=== PATIENT | female | born 1990 | race Caucasian/White ===

== ENCOUNTER 2017-06-18 03:53 | Emergency (ER) | payer SELFPAY ==
[2017-06-18 04:46] LABS: Comments Flag Yes; Hematocrit 30 % (35-47); Hemoglobin 10.7 g/dl (12.0-16.0); Mean Corpuscular HGB Conc 36 g/dl (31-36); Mean Corpuscular Hemoglobin 31 pg (27-31); Mean Corpuscular Volume 85 fL (80-97); Mean Platelet Volume 8 um3 (7.4-10.4); Red Cell Distribution Width 18 % (10.5-15)
[2017-06-18 04:47] LABS: Add Diff/Slide Review? Slide Review Added
[2017-06-18 04:58] LABS: ALT 10 U/L (7-52); AST 26 U/L (13-39); Acetaminophen < 15 mcg/mL; Alcohol 51 mg/dL (<10); Alkaline Phosphatase 59 U/L (34-104); Anion Gap 7 mmol/L (2-11); BUN/Creatinine Ratio 28.3 (8-20); Blood Urea Nitrogen 13 mg/dL (6-24); CO2 Carbon Dioxide 26 mmol/L (22-32); Calcium 8.7 mg/dL (8.6-10.3); Chloride 110 mmol/L (101-111); EGFR African American 214.6 (>60); EGFR Non-African American 166.9 (>60); Globulin 2.4 g/dL (2-4); Glucose 93 mg/dL (70-100); Potassium 3.2 mmol/L (3.5-5.0); Salicylate < 2.50 mg/dL (<30); Sodium 143 mmol/L (133-145); Total Protein 6.4 g/dL (6.4-8.9)
[2017-06-18 05:10] LABS: Polychromasia 1+; Schistocytes 2+
[2017-06-18 05:11] LABS: Add Path Review? YES; Spherocytes 1+
[2017-06-18 05:12] LABS: TSH (Thyroid Stimulating Horm) 0.41 mcIU/mL (0.34-5.60)
[2017-06-18] MEDS ORDERED: Potassium Chlor TAB* 20 MEQ TAB.ER PO ONE (05:36)
--- NOTE | 2017-06-18 06:48 | ED ---
Silviano Sepulveda Tiffany, scribed for Nixon Go on 06/18/17 at 0419 . Substance Abuse/Use - HPI Summary HPI Summary: This patient is a 26 year old F BIBA on 941 to [facility] with a chief complaint of possible substance overdose s/p taking 4 tabs of 30 mg Mirtazapine three hours ago. Symptoms aggravated by nothing. Symptoms alleviated by nothing. The patient reports that her boyfriend stated that he would call the police and tell the police that she wanted to kill herself if she did not share her sleeping pills with him. Patient denies SI and HI at the time of evaluation. - History Of Current Complaint Chief Complaint: EDOverdose Stated Complaint: 941, POSS OD Time Seen by Provider: 06/18/17 03:57 Hx Obtained From: Patient Ingestion History: Type/Name Of Drug - Mirtazapine, Amount Ingested - 4 tabs of 30 mg, Approximate Time Of Ingestion - Three hours ago Aggravating Factor(s): Nothing Alleviating Factor(s): Nothing Associated Signs And Symptoms: Negative - SI and HI at the time of evaluation PMH/Surg Hx/FS Hx/Imm Hx Previously Healthy: Yes Cardiovascular History: Denies: Hx Hypertension History: Denies: Hx Renal Disease Opthamlomology History: Denies: Hx Legally Blind EENT History: Denies: Hx Deafness - Family History Known Family History: Positive: Other - Pt denies knowledge of relevant family history - Social History Alcohol Use: Occasionally Hx Substance Use: Yes Substance Use Type: Reports: Marijuana Review of Systems Negative: Fever Positive: Other - NEGATIVE: SI and HI at the time of evaluation All Other Systems Reviewed And Are Negative: Yes Physical Exam - Summary Physical Exam Summary: Appearance: Well appearing, no pain distress Skin: warm, dry, reflects adequate perfusion Head/face: normal Eyes: EOMI, RIYA ENT: normal Neck: supple, non-tender Respiratory: CTA, breath sounds present Cardiovascular: RRR, pulses symmetrical Abdomen: non-tender, soft Bowel: present Musculoskeletal: normal, strength/ROM intact Neuro: normal, sensory motor intact, A&Ox3 Psych: Depressed affect Triage Information Reviewed: Yes Vital Signs Reviewed: Yes Diagnostics - Laboratory Result Diagrams: 06/18/17 04:32 06/18/17 04:32 Lab Statement: Any lab studies that have been ordered have been reviewed, and results considered in the medical decision making process. - EKG 04:17 Cardiac Rate: NL EKG Rhythm: Sinus Rhythm - 93 BPM EKG Interpretation: No acute changes Course/Dx - Course Course Of Treatment: This patient is a 26 year old F BIBA on 941 to [facility] with a chief complaint of possible substance overdose s/p taking 4 tabs of 30 mg Mirtazapine three hours ago. An EKG reveals sinus rhythm (93 BPM) and no acute changes. Bloodwork/UA obtained. Patient will be signed out to Dr. Cardoso at shift change, awaiting medical clearance. - Diagnoses Provider Diagnoses: Depression, Suicidal ideation, Drug overdose Discharge - Discharge Plan Condition: Fair Disposition: OTHER Discharge Disposition Comment: Patient will be signed out at shift change, awaiting medical clearance The documentation as recorded by the Silviano cota Tiffany accurately reflects the service I personally performed and the decisions made by me, Nixon Go.
--- NOTE | 2017-06-18 12:02 | CONSULT ---
Consult Consult: Ms. Euceda presented on a previous shift after an OD. She was medically cleared and seen by the [facility]. They felt that she was stable for D/C and she was D/C'd in stable condition with a diagnosis of depression.
[2017-06-18 12:08] VITALS: BP 106/58
== END 2017-06-18 12:49 ==
LOC: ED 03:53
DX: T43.022A Poisoning by tetracyclic antidepressants, intentional self-harm, initial encounter (principal); Y92.9 Unspecified place or not applicable; F32.9 Major depressive disorder, single episode, unspecified
CPT/HCPCS: 36415; 80053; 80320; 80329; 84443; 84702; 85025; 85060; 93005; 99284; A9270-GY; G0480